=== PATIENT | male | born 1960 | race African-American/Black ===

== ENCOUNTER 2024-10-17 11:55 | Outpatient (AMB) | payer OTHER, SELFPAY ==
--- NOTE | 2024-10-17 12:09 | HO.NEPHOV_ITS ---
Vital Signs 10/17/24 12:12 Height 5 ft 11 in Weight 209 lb 2 oz BMI 29.2 BP 100/70 Blood Pressure Location Lt brachial Position Sitting Pulse 90 Pulse Source Pulse Oximeter Pulse Oximetry (%) 98 Oxygen Delivery Method Room Air Intake Visit Reasons: DISH MACHINE OPERATOR: Bilateral renal cysts-Conf Trestle Mainternance Laborer Required: No Accompanied by: Self / Same As Patient Allergies No Known Allergies Allergy (Verified 10/17/24 12:11) HPI Comments Details: I had the pleasure of seeing Tevin in consultation for CKD and renal cysts. He has been a diabetic for a long time and is currently on Trulicity and glimiperide. He feels his DM is under better control. He has H/O lymphoma in the past. He has been aware of his CKD for sometime but has not seen a renal physician in the past. He is unsure whether he has proteinuria but denies retinopathy or neuropathy. He denies CAD, carotid stenosis, CVA, CHF or PAD. He has no deafness, hematuria, sinusitis, epistaxis, new skin rashes, edema , nausa, vomiting, diarrhea, IBD or urinary symptoms. He is known to have renal cysts but has no flank pain or renal stones. His mom was on dialysis and is unsure what led to her renal issues. He never had a genetic testing for PKD. [facility] Medical History (Updated 10/17/24 @ 12:27 by Stuart Allen MD) Diabetes mellitus type 2 in nonobese Congenital bilateral renal cysts Mixed hyperlipidemia Fatty liver Lymphoma of lymph nodes of neck Family History (Updated 10/17/24 @ 12:11 by Baylee Rust MA) Mother Diabetes Father Cancer Social History (Updated 10/17/24 @ 12:10 by Baylee Rust MA) Alcohol intake: never Patient Tobacco Use Status: Never used Tobacco Review of Systems Const All systems reviewed & are unremarkable except as noted in HPI and below Physical Exam Vital Signs: Last Vital Signs Pulse 90 10/17/24 12:12 BP 100/70 10/17/24 12:12 Pulse Ox 98 10/17/24 12:12 Oxygen Delivery Method Room Air 10/17/24 12:12 BMI result Body Mass Index 29.2 Const General: comfortable and no acute distress Orientation/consciousness: patient oriented x3 HEENT Head: Yes normocephalic Mouth: Normal oral and palatal mucosa present Eyes EOM: EOMs intact bilaterally Neck Neck: Yes supple Resp Auscultation: clear to auscultation bilaterally Cardio Jugular venous distension: no JVD Rate: regular rate GI Palpation (GI): Soft to palpation Auscultation: normal bowel sounds General: Yes no CVA tenderness Back/Spine/Pelvis Back: no CVA tenderness Skin General skin exam: no rashes or lesions noted Neuro General: patient oriented x3 and moves all extremities Extrem General: Yes no pedal edema Assessment & Plan Assessment & Plan (1) CKD stage 3a, GFR 45-59 ml/min: Code(s): N18.31 - Chronic kidney disease, stage 3a Category: Medical Plan Tevin has CKD which likely is multifactorial. He has long standing DM but denies proteinuria, hematuria, edema or hypertension. He had lymphoma in the past. He is known to have renal cysts. His mom was on dialysis and is unsure what led to her renal issues. He never had a genetic testing for PKD. I have ordered further work up including 24 hour urine for creatinine clearance. He will be a candidate for SGLT2 i after D/Cing glimeperide at next visit based on evolving data. I also plan to arrange imaging of kidneys in 6 M for F/U renal cysts. He should preferably avoid NSAID's and maintain good hydration. Answered all questions and follow up was given Orders: Orders Creatinine Clearance Urine 24U 6 Months N18.31 - Chronic kidney disease, stage 3a Parathyroid Hormone Intact 6 Months N18.31 - Chronic kidney disease, stage 3a Vitamin D 25-OH Total 6 Months N18.31 - Chronic kidney disease, stage 3a Creatinine 6 Months N18.31 - Chronic kidney disease, stage 3a Immunofixation Pnl, Serum 6 Months N18.31 - Chronic kidney disease, stage 3a Electrolytes 6 Months N18.31 - Chronic kidney disease, stage 3a Calcium 6 Months N18.31 - Chronic kidney disease, stage 3a Blood Urea Nitrogen 6 Months N18.31 - Chronic kidney disease, stage 3a Protein Creatinine Ratio, Ur 6 Months N18.31 - Chronic kidney disease, stage 3a Coding Level of Care Code New Pt Level 4 (31651) Diagnoses CKD stage 3a, GFR 45-59 ml/min N18.31
[2024-10-17 12:12] VITALS: BP 100/70; PULSE 90; O2SAT 98; BMI 29.2
--- OUTSIDE RECORDS SUMMARY | 2024-10-17 13:24 | XMS_ITS | Encounter Summary ---
Author Organization [place] [address] Care Team Providers Care Utility Worker Roller Shop Name Role Phone Maury Castaneda MD Primary Care Provider [phone] Reason for Visit * Reason Onset Date Comments Leonel - Records request 10/03/2024 Encounter Details Date Type Department Care Team ([facility] st Contact Info) Description 10/03/2024 Telephone Internal Medicine - [place] 175 [facility] [address] [place] [phone] Maury Castaneda MD 175 [facility] [address] [place] [address] Leonel - Records request Social History Tobacco Use Types Packs/Day Years Used Date Smoking Tobacco: Never Smokeless Tobacco: Never Alcohol Use Standard Drinks/Week Comments No 0 (1 standard drink = 0.6 oz pur e alcohol) Sex and Gender Information Value Date Recorded Sex Assigned at Male 06/19/2024 5:09 PM EST Legal Sex Male 8:40 AM EST Gender Identity Male 06/19/2024 5:09 PM EST Sexual Orientation Straight 06/19/2024 5: 09 PM EST documented as of this encounter Progress Notes * Yancy Low MA - 10/04/2024 10:52 AM EDT Notes and labs fax to [phone] * Eloina Vicente - 10/03/2024 3:32 PM EDT Renny from [facility] called and stated they received referral for this patient. But he requested pt's most recent office clinical notes and lab results because they did not receive those with referral. He also stated if pt has any other diagnosis' to send a list. Please advise. Please fax to [phone]. documented in this encounter Plan of Treatment Upcoming Encounters Date Type Department Care Team (Late st Contact Info) Description 01/23/2025 10:00 AM EDT Office Visit [facility] Hematology Oncology [address] [place] [address] Lesley Ferreira MD [address] [place] [address] 02/14/2025 9:45 AM EDT Office Visit Internal Medicine - [place] [address] [address] Maury Castaneda MD [address] [address] documented as of this encounter Visit Diagnoses Not on filedocumented in this encounter Additional Health Concerns Infection Onset Date Last Indicated Resolved Time Salmonella 06/21/2024 06/21/2024 documented as of this encounter Care Teams Utility Worker Roller Shop Relationship Specialty Start Date End Date Maury Castaneda MD [address] [address] PCP - General Internal Medicine 02/08/20 documented as of this encounter
== END 2024-10-17 12:37 | disposition home or self-care (01) ==
PROVIDERS: PCP Internal Medicine; Visit Provider Internal Medicine Nephrology
DX: N18.31 Chronic kidney disease, stage 3a (principal)
CPT/HCPCS: 99204

== ENCOUNTER → 2024-10-17 11:55 | Outpatient (BNVA) | payer OTHER, SELFPAY | PROVIDERS: PCP Internal Medicine; Visit Provider Internal Medicine Nephrology | DX: E11.22 Type 2 diabetes mellitus with diabetic chronic kidney disease (principal); N18.31 Chronic kidney disease, stage 3a; N28.1 Cyst of kidney, acquired | CPT/HCPCS: 99202 ==

== ENCOUNTER 2025-04-10 15:01 | Outpatient (AMB) | payer OTHER, SELFPAY ==
--- NOTE | 2025-04-10 15:19 | HO.NEPHOV ---
Vital Signs 04/10/25 15:20 Height 5 ft 11 in Weight 206 lb 2 oz BMI 28.7 BP 116/80 Blood Pressure Location Lt brachial Position Sitting Pulse 60 Pulse Source Pulse Oximeter Pulse Oximetry (%) 98 Oxygen Delivery Method Room Air Intake Visit Reasons: 6 mo follow up-[facility] Block And Case Maker Required: No Accompanied by: Self / Same As Patient Allergies No Known Allergies Allergy (Verified 04/10/25 15:20) HPI Comments Details: I had the pleasure of seeing Tevin in follow up for CKD and renal cysts. He has been a diabetic for a long time and is currently on Trulicity and glimiperide. He feels his DM is under better control. He has H/O lymphoma in the past. He has been aware of his CKD for sometime but has not seen a renal physician in the past. He is unsure whether he has proteinuria but denies retinopathy or neuropathy. He denies CAD, carotid stenosis, CVA, CHF or PAD. He has no deafness, hematuria, sinusitis, epistaxis, new skin rashes, edema , nausa, vomiting, diarrhea, IBD or urinary symptoms. He is known to have renal cysts but has no flank pain or renal stones. His mom was on dialysis and is unsure what led to her renal issues. He never had a genetic testing for PKD [facility] Medical History (Updated 04/10/25 @ 15:33 by Stuart Allen MD) Diabetes mellitus type 2 in nonobese Congenital bilateral renal cysts Mixed hyperlipidemia Fatty liver Lymphoma of lymph nodes of neck Family History Mother Diabetes Father Cancer Social History Alcohol intake: never Patient Tobacco Use Status: Never used Tobacco Review of Systems Const All systems reviewed & are unremarkable except as noted in HPI and below Physical Exam Vital Signs: Last Vital Signs Pulse 60 04/10/25 15:20 BP 116/80 04/10/25 15:20 Pulse Ox 98 04/10/25 15:20 Oxygen Delivery Method Room Air 04/10/25 15:20 BMI result Body Mass Index 28.7 Const General: comfortable and no acute distress Orientation/consciousness: patient oriented x3 HEENT Head: Yes normocephalic Mouth: Normal oral and palatal mucosa present Eyes EOM: EOMs intact bilaterally Neck Neck: Yes supple Resp Auscultation: clear to auscultation bilaterally Cardio Jugular venous distension: no JVD Rate: regular rate GI Palpation (GI): Soft to palpation Auscultation: normal bowel sounds General: Yes no CVA tenderness Back/Spine/Pelvis Back: no CVA tenderness Skin General skin exam: no rashes or lesions noted Neuro General: patient oriented x3 and moves all extremities Extrem General: Yes no pedal edema Assessment & Plan Assessment & Plan (1) CKD stage 3a, GFR 45-59 ml/min: Code(s): N18.31 - Chronic kidney disease, stage 3a Category: Medical (2) Renal cyst: Code(s): N28.1 - Cyst of kidney, acquired Category: Medical Plan Tevin has CKD which likely is multifactorial. He has long standing DM but denies proteinuria, hematuria, edema or hypertension. He had lymphoma in the past. He is known to have renal cysts. His mom was on dialysis and is unsure what led to her renal issues. He never had a genetic testing for PKD. I started him on Jardiance 10 mg today which I plan to increase to 25 mg at next visit. I also plan to arrange imaging of kidneys in 6 M for F/U renal cysts. He should preferably avoid NSAID's and maintain good hydration. Answered all questions and follow up was given Orders: Orders Hemoglobin A1c 3 Months N18.31 - Chronic kidney disease, stage 3a, N28.1 - Cyst of kidney, acquired [employer] Mon[employer] Crohn's 3 Months N18.31 - Chronic kidney disease, stage 3a, N28.1 - Cyst of kidney, acquired Blood Urea Nitrogen 3 Months N18.31 - Chronic kidney disease, stage 3a, N28.1 - Cyst of kidney, acquired Creatinine 3 Months N18.31 - Chronic kidney disease, stage 3a, N28.1 - Cyst of kidney, acquired Electrolytes 3 Months N18.31 - Chronic kidney disease, stage 3a, N28.1 - Cyst of kidney, acquired Medications: New empagliflozin (Jardiance) 10 mg PO DAILY 30 tabs 6RF Coding Level of Care Code Est Pt Level 4 (94092) Diagnoses CKD stage 3a, GFR 45-59 ml/min N18.31 Renal cyst N28.1
[2025-04-10 15:20] VITALS: BP 116/80; PULSE 60; O2SAT 98; BMI 28.7
--- OUTSIDE RECORDS SUMMARY | 2025-04-10 18:44 | XMS_ITS | Encounter Summary ---
Author Organization [employer] Address [address] [place] [address] Care Team Providers Care Acrobatic Rigger Name Role Phone Maury Castaneda MD Primary Care Provider [phone] Encounter Details Date Type Department Care Team (Late st Contact Info) Description 02/15/2025 Results Follow-Up Internal Medicine - [place] [address] [phone] Maury Castaneda MD [address] [address] Social History Tobacco Use Types Packs/Day Years [...] PM EST documented as of this encounter Plan of Treatment Upcoming Encounters Date Type Department Care Team (Late st Contact Info) Description 04/18/2025 10:00 AM EST Office Visit Endocrinology - [address] [address] Michael Mcfadden MD [address] [place], [place] 01/23/2026 10:15 AM EDT Office Visit [facility] Hematology Oncology [address] [place] [phone] Lesley Ferreira MD [address] [place] [address] documented as of this encounter Visit Diagnoses Not on filedocumented in this encounter Additional Health Concerns Infection Onset Date Last Indicated Resolved Time Salmonella 06/21/2024 06/21/2024 documented as of this encounter Care Teams Acrobatic Rigger Relationship Specialty Start Date End Date Maury Castaneda MD [address] [address] PCP - General Internal Medicine 02/08/20 documented as of this encounter
--- OUTSIDE RECORDS SUMMARY | 2025-04-10 18:44 | XMS_ITS | Encounter Summary ---
Author Organization [facility] Address [facility] [employer] [facility] [address] [place] [address] Phone Care Team Providers Care Beet Flumer Name Role Phone Maury Castaneda MD Primary Care Provider [phone] Lesley Ferreira MD Unavailable [phone] Roxi Roper Unavailable [phone] Encounter Details Date Type Department Care Team (Late st Contact Info) Description 09/04/2020 Procedure Pass [facility] L2 PRU [address] [place] [address] Social History Tobacco Use Types Packs/Day Years Used Date Smoking Tobacco: Never Smokeless Tobacco: Never Sex and Gender Information Value Date Recorded Sex Assigned at Male 10/14/2020 4:54 PM EDT Legal Sex Male 10:07 AM EST Gender Identity Male 10/14/2020 4:54 PM EDT Sexual Orientation Straight 10/14/2020 4: 54 PM EDT documented as of this encounter Plan of Treatment Not on file documented as of this encounter Visit Diagnoses Not on filedocumented in this encounter Care Teams Beet Flumer Relationship Specialty Start Date End Date Maury Castaneda MD [address] [address] PCP - General Internal Medicine 05/23/20 Lesley Ferreira MD [address] [address] [email or web address] Referring Physician Internal Medicine 05/23/20 Roxi Roper, [address] [address] [email or web address] Executive Director Of Nursing Oncology 08/06/20 documented as of this encounter Additional Source Comments The information contained in this document represents components of the legal health record. It is not the complete legal health record.[facility]
--- OUTSIDE RECORDS SUMMARY | 2025-04-10 18:44 | XMS_ITS | Encounter Summary ---
Author Organization [facility] Address [facility] [employer] [facility] [address] [place] [address] Phone Care Team Providers Care Network Operations Center Engineer Name Role Phone Maury Castaneda MD Primary Care Provider [phone] Lesley Ferreira MD Unavailable [phone] Roxi Roper Unavailable [phone] Encounter Details Date Type Department Care Team (Late st Contact Info) Description 09/04/2020 Procedure Pass [facility] Angio Interventional Radiology [address] [place] [address] Social History Tobacco Use Types Packs/Day Years [...] on filedocumented in this encounter Care Teams Network Operations Center Engineer Relationship Specialty Start Date End Date Maury Castaneda MD [address] [address] PCP - General Internal Medicine 05/23/20 Lesley Ferreira MD [address] [address] [email or web address] Referring Physician Internal Medicine 05/23/20 Roxi Roper, [address] [address] [email or web address] Boring Machine Operator Oncology 08/06/20 documented as of this encounter Additional Source Comments The information contained in this document represents components of the legal health record. It is not the complete legal health record.[facility]
--- OUTSIDE RECORDS SUMMARY | 2025-04-10 18:44 | XMS_ITS | Encounter Summary ---
Author Organization [facility] Address [facility] [employer] [facility] [address] [place] [address] Phone Care Team Providers Care Mash Filter Operator Name Role Phone Maury Castaneda MD Primary Care Provider [phone] Lesley Ferreira MD Unavailable [phone] Roxi Roper Unavailable [phone] Encounter Details Date Type Department Care Team (Late st Contact Info) Description 08/05/2020 [facility], Division of Hematologic Oncology, [facility] [place] [address] [place] [address], [address] [place] [address] Tanisha Whitlock, RN [address] [place] [phone] [email or web address] Social History Tobacco Use Types Packs/Day Years Used Date Smoking Tobacco: Never Assessed Sex and Gender Information Value Date Recorded Sex Assigned at Male 10/14/2020 4:54 PM EDT Legal Sex Male 10:07 AM EST Gender Identity Male 10/14/2020 4:54 PM EDT Sexual Orientation Straight 10/14/2020 4: 54 PM EDT documented as of this encounter Plan of Treatment Not on file documented as of this encounter Visit Diagnoses Not on filedocumented in this encounter Care Teams Mash Filter Operator Relationship Specialty Start Date End Date Maury Castaneda MD [address] [address] PCP - General Internal Medicine 05/23/20 Lesley Ferreira MD [address] [place] [id number] [email or web address] Referring Physician Internal Medicine 05/23/20 Roxi Roper, [address] [address] [email or web address] Silk Screen Etcher Oncology 08/06/20 documented as of this encounter Additional Source Comments The information contained in this document represents components of the legal health record. It is not the complete legal health record.[facility]
--- OUTSIDE RECORDS SUMMARY | 2025-04-10 18:44 | XMS_ITS | Encounter Summary ---
Author Organization [facility] Address [facility] [employer] [facility] [address] [place] [address] Phone Care Team Providers Care Design Technology Teacher Name Role Phone Maury Castaneda MD Primary Care Provider [phone] Lesley Ferreira MD Unavailable [phone] Roxi Roper Unavailable [phone] Encounter Details Date Type Department Care Team (Late st Contact Info) Description 10/23/2020 Procedure Pass [facility] Angio Interventional Radiology [address] [place] [address] Social History Tobacco Use Types Packs/Day Years Used Date Smoking Tobacco: Never Smokeless Tobacco: Never Alcohol Use Standard Drinks/Week Comments Not Currently 0 (1 standard drink = 0.6 oz [...] on filedocumented in this encounter Care Teams Design Technology Teacher Relationship Specialty Start Date End Date Maury Castaneda MD 175 [facility] [address] [place] [address] PCP - General Internal Medicine 05/23/20 Lesley Ferreira MD [address] [place] [phone] [email or web address] Referring Physician Internal Medicine 05/23/20 Roxi Roper, [address] [address] [email or web address] Exhibitor Sales Oncology 08/06/20 documented as of this encounter Additional Source Comments The information contained in this document represents components of the legal health record. It is not the complete legal health record.[facility]
--- OUTSIDE RECORDS SUMMARY | 2025-04-10 18:44 | XMS_ITS | Clinical Summary ---
Author Organization [facility] Address [address] [place] [address] Phone Care Team Providers Care Linux Developer Name Role Phone Maury Castaneda MD Primary Care Provider [phone] Allergies No known active allergies Medications dulaglutide (Trulicity) 3 mg/0.5 mL pen injector injection Inject 0.5 mL (3 mg total) under the skin every 7 (seven) days. Active glimepiride (AMARYL) 2 mg tablet Take 1 tablet (2 mg total) by mouth 1 (one) time each day before breakfast. each 5 026 Active blood-glucose meter (OneTouch Ultra2 Meter) misc Use to monitor blood sugars up to 4 times daily for type 2 diabetes mellitus E11.9 1 each 5 Active OneTouch Ultra Test test strip Use to monitor blood sugars up to 4 times daily for type 2 diabetes mellitus E11.9 100 each 2 5 Active lancets (OneTouch UltraSoft 2 Lancet) 30 gauge misc Monitor blood sugars up to 4X daily for type 2 diabetes mellitus E11.9 100 each 3 5 Active glimepiride (AMARYL) 2 mg tablet Take 2 tablets (4 mg total) by mouth 2 (two) times a day. 4 025 Discontinued dulaglutide (Trulicity) 1.5 mg/0.5 mL pen injector injectionIndic ations:Diabete s mellitus type 2 in nonobese ([facility] V24, CMS/HCC V28) Inject 0.5 mL (1.5 mg total) under the skin 1 (one) time per week. 2 mL 3 5 025 Discontinued Active Problems Problem Noted Date Diagnosed Date Type 2 diabetes mellitus wit h hyperglycemia, without long-term current use of insulin (CMS/[facility] V24, CMS/HCC V28) 03/14/2025 Lymphoma of lymph nodes of neck (CMS/[facility] V24, CM S/[facility] V28) 09/09/2018 Fatty liver 06/20/2010 Mixed hyperlipidemia 06/20/2010 Known medical problems 06/20/2010 Overview (04/26/2024): Type II or unspecified type diabetes mellitus without mention of complication, uncontrolled Encounters Date Type Department Care Team Description 03/14/2025 11:30 AM EDT Consult Endocrinology [address] [phone] Michael Mcfadden MD Type 2 diabetes mellitus with hyperglycemia, without long-term current use of insulin ([facility] V24, [facility] V28) (Primary Dx); Diabetes mellitus type 1.5, managed as type 2 ([facility] V24, [facility]/HCC V28) 02/15/2025 Results Follow-Up Internal Medicine [address] [phone] Maury Castaneda MD 02/14/2025 9:45 AM EDT Office Visit Internal Medicine [address] [phone] Maury Castaneda MD Diabetes mellitus type 1.5, managed as type 2 ([facility] V24, CMS/HCC V28) (Primary Dx); Mixed hyperlipidemia; Lymphoma of lymph nodes of neck, unspecified lymphoma type (CMS/[facility] V24, CMS/HCC V28); Screening for prostate cancer 01/23/2025 10:00 AM EDT Office Visit [facility] Hematology Oncology [address] [place] [phone] Lesley Ferreira MD History of B-cell lymphoma (Primary Dx) from Last 3 Months Immunizations Immunization Administration Dates Next Due Influenza Quadravalent, MDCK , 0.5ml, preservative free (Flucelvax) 6mo and older 02/08/2020 Influenza trivalent, 0.5mL, preservative free (Fluarix; FluLaval; Fluzone) ages 6mo and older (Afluria) 3 years and older 06/19/2010,03/06/2008 Pfizer SARS-CoV-2 COVID-19, mRNA, LNP-S, preservative free 07/09/2020 Pneumococcal polysaccharide 23 valent (Pneumovax 23) 2yo and older 06/19/2010 Td Tetanus diptheria (Tdvax) 7yo and older 03/30,05/17/1992 Tdap Tetanus diptheria acell ular pertussis (Boostrix; Adacel) 7yo and older 08/15/2010 Medical History Medical History Date Comments Diabetes mellitus ([facility] V24, [facility] V28) Social History Tobacco Use Types Packs/Day Years Used Date Smoking Tobacco: Never Smokeless Tobacco: Never Tobacco Cessation:Counseling Given: Not Answered Alcohol Use Standard Drinks/Week Comments No 0 (1 standard drink = 0.6 oz pur e alcohol) Sex and Gender Information Value Date Recorded Sex Assigned at Male 06/19/2024 5:09 PM EST Legal Sex Male 8:40 AM EST Gender Identity Male 06/19/2024 5:09 PM EST Sexual Orientation Straight 06/19/2024 5: 09 PM EST Obstetrics History Last Filed Vital Signs Vital Sign Reading Time Taken Comments Blood Pressure 130/81 03/14/2025 11:31 AM EDT Pulse 61 03/14/2025 11:31 AM EDT Temperature 36.4 C (97.5 F) 02/14/2025 9:44 AM EDT Respiratory Rate 13 03/14/2025 11:31 AM EDT Oxygen Saturation 98% 02/14/2025 9:44 AM EDT Inhaled Oxygen Concentration - - Weight 95.7 kg (211 lb) 03/14/2025 11:31 AM EDT Height 180.3 cm (5' 11 ) 03/14/2025 11:31 AM EDT Body Mass Index 29.43 03/14/2025 11:31 AM EDT Plan of Treatment Upcoming Encounters Date Type Department Care Team (Late st Contact Info) Description 04/18/2025 10:00 AM EST Office Visit Endocrinology - [place] [address] [place] [phone] Michael Mcfadden MD [address] [place] [address] 01/23/2026 10:15 AM EDT Office Visit [facility] Hematology Oncology [address] [place] [phone] Lesley Ferreira MD [address] [place] [address] Health Maintenance Due Date Last Done Comments Diabetes: Annual Foot Exam 1972 Diabetes: Annual Retina Eye Exam 1972 Zoster Vaccines (1 of 2) 1981 Pneumococcal Vaccine: 50+ Years (2 of 2 - PCV) 06/19/2011 06/19/2010 DTaP,Tdap,and Td Vaccines (4 - Td or Tdap) 08/15/2020 08/15/2010, 03/30/2005, 05/17/1992 HIV Screening 04/24/2022 Hepatitis C Screening 04/24/2022 Medicare Annual Wellness Visit 04/24/2022 Social Influencers of Health Screening 04/24/2022 Depression Screening 05/17/2024 COVID-19 Vaccine ( season) 2025 03/27/2022, 04/09/2021, 08/08/2020, Additional history exists Influenza Vaccine (#1) 2025 , 06/19/2010, 03/06/2008 Diabetes: Blood Sugar Control Test (HGBA1C) 08/16/2025 02/15/2025, 06/27/2021, 02/12/2020 Diabetes: Annual Urine Albumin-Creatinine Ratio (uACR) 11/28/2025 11/28/2024, 11/28/2024, 02/12/2020 Diabetes: Annual GFR (Glomerular Filtration Rate) 02/15/2026 02/15/2025, 12/08/2024, 11/28/2024, Additional history exists Cholesterol Screening (Lipid Panel) 02/15/2030 02/15/2025, 06/27/2021, 02/12/2020 Colorectal Cancer Screening: Colonoscopy 09/23/2033 09/24/2023 RSV Immunization Adult Patients (1 - 1-dose 75+ series) 2037 HIB Vaccines Aged Out No longer eligi ble based on patient's age to complete this topic HPV Vaccines Aged Out No longer eligi ble based on patient's age to complete this topic Hepatitis A Vaccines Aged Out No long er eligible based on patient's age to complete this topic Hepatitis B Vaccines Aged Out No long er eligible based on patient's age to complete this topic IPV Vaccines Aged Out No longer eligi ble based on patient's age to complete this topic MMR Vaccines Aged Out No longer eligi ble based on patient's age to complete this topic Meningococcal ACWY Vaccine Aged Out N o longer eligible based on patient's age to complete this topic Meningococcal B Vaccine Aged Out No l onger eligible based on patient's age to complete this topic RSV Immunization Patients Under 20 months Aged Out No longer eligible based on patient's age to complete this topic Varicella Vaccines Aged Out No longer eligible based on patient's age to complete this topic Procedures Procedure Name Priority Date/Time Associated Diagnosis Comments CBC WITH AUTO DIFFERENTIAL Routine 02/15/2025 8:56 AM EDT Mixed hyperlipidemia Diabetes mellitus type 1.5, managed as type 2 (CMS/HCC V24, CMS/HCC V28) Lymphoma of lymph nodes of neck, unspecified lymphoma type (CMS/HCC V24, CMS/HCC V28) LIPID PANEL WITH REFLEX TO DIRECT LDL Routine 02/15/2025 8:56 AM EDT Mixed hyperlipidemia Diabetes mellitus type 1.5, managed as type 2 (CMS/HCC V24, CMS/HCC V28) Lymphoma of lymph nodes of neck, unspecified lymphoma type (CMS/HCC V24, CMS/HCC V28) CBC AND DIFFERENTIAL Routine 02/15/2025 8:56 AM EDT Mixed hyperlipidemia Diabetes mellitus type 1.5, managed as type 2 (CMS/HCC V24, CMS/HCC V28) Lymphoma of lymph nodes of neck, unspecified lymphoma type (CMS/HCC V24, CMS/HCC V28) COMPREHENSIVE METABOLIC PANEL Routine 02/15/2025 8:56 AM EDT Mixed hyperlipidemia Diabetes mellitus type 1.5, managed as type 2 (CMS/HCC V24, CMS/HCC V28) Lymphoma of lymph nodes of neck, unspecified lymphoma type (CMS/HCC V24, CMS/HCC V28) THYROID STIMULATING HORMONE Routine 02/15/2025 8:56 AM EDT Mixed hyperlipidemia Diabetes mellitus type 1.5, managed as type 2 (CMS/HCC V24, CMS/HCC V28) Lymphoma of lymph nodes of neck, unspecified lymphoma type (CMS/HCC V24, CMS/HCC V28) HEMOGLOBIN A1C Routine 02/15/2025 8:56 AM EDT Mixed hyperlipidemia Diabetes mellitus type 1.5, managed as type 2 (CMS/HCC V24, CMS/HCC V28) Lymphoma of lymph nodes of neck, unspecified lymphoma type (CMS/HCC V24, CMS/HCC V28) PROSTATE SPECIFIC ANTIGEN SCREEN Routine 02/15/2025 8:56 AM EDT Screening for prostate cancer MICROALBUMIN CREATININE URINE RATIO Routine 11/28/2024 9:35 AM EDT Diabetes mellitus (CMS/HCC V24, CMS/HCC V28) Chronic kidney disease, stage II (mild) HM COLONOSCOPY Routine 09/24/2023 from Last 3 Months or Most Recently Relevant to Health Maintenance Results * Prostate specific antigen screen (02/15/2025 8:56 AM EDT) PSA 0.78 0.00 - 4.00 ng/mL LAB CHEMISTRY METHOD 02/15/2025 11:48 AM EDT [facility] Blood Venous blood specimen / Unknown Venipuncture / Unknown 02/15/2025 8:56 AM EDT 02/15/2025 8:56 AM EDT Narrative [facility] - 02/15/2025 11:48 AM EDT The Siemens Advia Centaur Chemiluminescent Immunoassay is used. Results obtained with different assay methods or kits cannot be used interchangeably. Results cannot be interpreted as absolute evidence of the presence or absence of malignant disease. us Maury Castaneda MD LAB BLOOD ORDERABLES Final Resul t [facility] [address] [place] [address], [place] [phone] * (ABNORMAL) Lipid panel with reflex to direct LDL (02/15/2025 8:56 AM EDT) Cholesterol 202(H) 0 - 200 mg/dL LAB CHEMISTRY METHOD 02/15/2025 10:24 AM T [facility] Triglycerides 141 0 - 150 mg/dL LAB CHEMISTRY METHOD 02/15/2025 10:24 AM EDT [facility] HDL 69 >=40 mg/dL LAB CHEMISTRY METHOD 02/15/2025 10:24 AM EDT [facility] LDL Calculated 105(H) 0 - 100 mg/dL LAB CHEMISTRY METHOD 02/15/2025 10:24 AM T [facility] Comment:Estimated LDL Calcul ated using equation: Total cholesterol - HDL cholesterol - (Triglycerides/5) VLDL Cholesterol Braulio 28.2 mg/dL LAB CHEMISTRY METHOD 02/15/2025 10:24 AM EDT [facility] Non HDL Chol. (LDL+VLDL) 133 <145 mg/dL LAB CHEMISTRY METHOD 02/15/2025 10:24 AM EDT [facility] Chol/HDL Ratio 2.9 0.0 - 4.4 LAB CHEMISTRY METHOD 02/15/2025 10:24 AM [facility] Blood Venous blood specimen / Unknown Venipuncture / Unknown 02/15/2025 8:56 AM EDT 02/15/2025 8:56 AM EDT us Maury Castaneda MD LAB BLOOD ORDERABLES Final Resul t [facility] [address] [place] [address], * (ABNORMAL) CBC auto differential (02/15/2025 8:56 AM EDT) WBC 4.3(L) 4.8 - 10.8 K/mcL LAB HEMETOLOGY METHOD 02/15/2025 10:00 AM [facility] RBC 5.30 4.50 - 5.50 M/mcL LAB HEMETOLOGY METHOD 02/15/2025 10:00 AM [facility] Hemoglobin 15.5 13.5 - 17.5 g/dL LAB HEMETOLOGY METHOD 02/15/2025 10:00 AM [facility] Hematocrit 48.0 42.0 - 54.0 % LAB HEMETOLOGY METHOD 02/15/2025 10:00 AM [facility] MCV 90.6 79.0 - 98.0 FL LAB HEMETOLOGY METHOD 02/15/2025 10:00 AM [facility] MCH 29.2 27.0 - 32.0 pcg LAB HEMETOLOGY METHOD 02/15/2025 10:00 AM [facility] MCHC 32.3 32.0 - 37.0 g/dL LAB HEMETOLOGY METHOD 02/15/2025 10:00 AM [facility] RDW 13.1 11.0 - 15.0 % LAB HEMETOLOGY METHOD 02/15/2025 10:00 AM [facility] Platelets 188 130 - 400 K/mcL LAB HEMETOLOGY METHOD 02/15/2025 10:00 AM [facility] MPV 11.7(H) 7.0 - 11.0 FL LAB HEMETOLOGY METHOD 02/15/2025 10:00 AM [facility] NRBC 0.0 <1.0 % LAB HEMETOLOGY METHOD 02/15/2025 10:00 AM [facility] NRBC Absolute 0.00 <0.10 K/mcL LAB HEMETOLOGY METHOD 02/15/2025 10:00 AM [facility] Neutrophils Relative 34.8 % LAB HEMETOLOGY METHOD 02/15/2025 10:00 AM [facility] Lymphocytes Relative 52.5 % LAB HEMETOLOGY METHOD 02/15/2025 10:00 AM [facility] Monocytes Relative 7.4 % LAB HEMETOLOGY METHOD 02/15/2025 10:00 AM [facility] Eosinophils Relative 3.9 % LAB HEMETOLOGY METHOD 02/15/2025 10:00 AM [facility] Basophils Relative 1.2 % LAB HEMETOLOGY METHOD 02/15/2025 10:00 AM [facility] Immature Granulocytes Relative 0.2 % LAB HEMETOLOGY METHOD 02/15/2025 10:00 AM [facility] Neutrophils Absolute 1.51 1.50 - 7.00 K/mcL LAB HEMETOLOGY METHOD 02/15/2025 10:00 AM [facility] Lymphocytes Absolute 2.28 1.00 - 5.00 K/mcL LAB HEMETOLOGY METHOD 02/15/2025 10:00 AM [facility] Monocytes Absolute 0.32 0.20 - 1.00 K/mcL LAB HEMETOLOGY METHOD 02/15/2025 10:00 AM [facility] Eosinophils Absolute 0.17 0.00 - 0.50 K/mcL LAB HEMETOLOGY METHOD 02/15/2025 10:00 AM [facility] Basophils Absolute 0.05 0.00 - 0.20 K/[facility] LAB HEMETOLOGY METHOD 02/15/2025 10:00 AM EDT [facility] Immature Granulocytes Absolute 0.01 0.00 - 0.03 K/[facility] LAB HEMETOLOGY METHOD 02/15/2025 10:00 AM EDT [facility] Blood Venous blood specimen / Unknown Venipuncture / Unknown 02/15/2025 8:56 AM EDT 02/15/2025 8:56 AM EDT us Maury Castaneda MD LAB BLOOD ORDERABLES Final Resul t Performing Organization Address City/[facility]/ZIP Co de Phone Number [facility] [address] [place] [address], [place] [phone] * Thyroid stimulating hormone (02/15/2025 8:56 AM EDT) TSH 2.05 0.40 - 4.00 mcIU/mL LAB CHEMISTRY METHOD 02/15/2025 11:24 AM EDT [facility] Blood Venous blood specimen / Unknown Venipuncture / Unknown 02/15/2025 8:56 AM EDT 02/15/2025 8:56 AM EDT us Maury Castaneda MD LAB BLOOD ORDERABLES Final Resul t [facility] [address] [place] [address], [place] [phone] * (ABNORMAL) Hemoglobin A1c (02/15/2025 8:56 AM EDT) Hemoglobin A1C 12.5(H) <6.5 % LAB CHEMISTRY METHOD 02/15/2025 12:36 PM EDT [facility] Mean Bld Glu Estim. 312 mg/dL LAB CHEMISTRY METHOD 02/15/2025 12:36 PM EDT [facility] Blood Venous blood specimen / Unknown Venipuncture / Unknown 02/15/2025 8:56 AM EDT 02/15/2025 8:56 AM EDT us Maury Castaneda MD LAB BLOOD ORDERABLES Final Resul t [facility] [address] [place] [address], * (ABNORMAL) Comprehensive metabolic panel (02/15/2025 8:56 AM EDT) Sodium 136 133 - 145 mmol/L LAB CHEMISTRY METHOD 02/15/2025 10:24 AM [facility] Potassium 4.2 3.5 - 5.5 mmol/L LAB CHEMISTRY METHOD 02/15/2025 10:24 AM [facility] Chloride 102 96 - 110 mmol/L LAB CHEMISTRY METHOD 02/15/2025 10:24 AM [facility] CO2 30 21 - 32 mmol/L LAB CHEMISTRY METHOD 02/15/2025 10:24 AM [facility] Anion Gap 4 3 - 11 LAB CHEMISTRY METHOD 02/15/2025 10:24 AM [facility] Glucose 254(H) 70 - 100 mg/dL LAB CHEMISTRY METHOD 02/15/2025 10:24 AM [facility] BUN 15 5 - 25 mg/dL LAB CHEMISTRY METHOD 02/15/2025 10:24 AM [facility] Creatinine 1.03 0.70 - 1.30 mg/dL LAB CHEMISTRY METHOD 02/15/2025 10:24 AM [facility] eGFR 82 >=60 mL/min/1. 73m2 LAB CHEMISTRY METHOD 02/15/2025 10:24 AM [facility] Comment:Calculation based on the Chronic Kidney Disease Epidemiology Collaboration (CKD-EPI) equation refit without adjustment for race. BUN/Creatinine Ratio 14.6 LAB CHEMISTRY METHOD 02/15/2025 10:24 AM [facility] Calcium 9.5 8.5 - 10.5 mg/dL LAB CHEMISTRY METHOD 02/15/2025 10:24 AM [facility] AST (SGOT) 16 10 - 42 unit/L LAB CHEMISTRY METHOD 02/15/2025 10:24 AM [facility] ALT (SGPT) 26 10 - 60 unit/L LAB CHEMISTRY METHOD 02/15/2025 10:24 AM [facility] Alkaline Phosphatase 105 42 - 121 unit/L LAB CHEMISTRY METHOD 02/15/2025 10:24 AM [facility] Total Protein 6.7 6.0 - 8.0 g/dL LAB CHEMISTRY METHOD 02/15/2025 10:24 AM [facility] Albumin 3.9 3.2 - 5.0 g/dL LAB CHEMISTRY METHOD 02/15/2025 10:24 AM [facility] Total Bilirubin 0.8 0.0 - 1.4 mg/dL LAB CHEMISTRY METHOD 02/15/2025 10:24 AM [facility] Blood Venous blood specimen / Unknown Venipuncture / Unknown 02/15/2025 8:56 AM EDT 02/15/2025 8:56 AM EDT us Maury Castaneda MD LAB BLOOD ORDERABLES Final Resul t [facility] [address] [place] [address], * Microalbumin creatinine urine ratio (11/28/2024 9:35 AM EDT) Creatinine, Urine 241.0 mg/dL LAB CHEMISTRY METHOD 11/28/2024 3:27 PM EDT [facility] Microalb, Ur 16.3 0.0 - 29.0 mg/L LAB CHEMISTRY METHOD 11/28/2024 3:27 PM EDT [facility] Microalb/Creat Ratio 7 <30 mg/g creat LAB CHEMISTRY METHOD 11/28/2024 3:27 PM EDT [facility] Urine Urine specimen obtained by clean catch procedure / Unknown Non-blood Collection / Unknown 11/28/2024 9:35 AM EDT 11/28/2024 9:35 AM EDT Buzz Quintanilla MD LAB URINE ORDERABLES Final Re sult [facility] [address] [place] [address], * Colonoscopy (09/24/2023) Colonoscopy no interpretation , abstracted Anatomical Region Laterality Modality Other Historical Provider HEALTH MAINTENANCE Final Result from Last 3 Months or Most Recently Relevant to Health Maintenance Additional Health Concerns Infection Onset Date Last Indicated Salmonella 06/21/2024 06/21/2024 Insurance [employer] Member Subscriber Plan / Payer (Ef fective 2020-Present) Name:CYRUS CARR Relation to Subscriber:Self Name:Cyrus Carr Payer ID:[id number] Group ID:[id number] Type:Not on file Address: [place] [facility] [place] [address] Care Teams Linux Developer Relationship Specialty Start Date End Date Maury Castaneda MD [address] [address] PCP - General Internal Medicine 02/08/20
--- OUTSIDE RECORDS SUMMARY | 2025-04-10 18:44 | XMS_ITS | Encounter Summary ---
Author Organization [facility] Address [facility] [employer] [facility] [address] [place] [address] Phone Care Team Providers Care Automobile Service Advisor Name Role Phone Maury Castaneda MD Primary Care Provider [phone] Lesley Ferreira MD Unavailable [phone] Roxi Roper Unavailable [phone] Encounter Details Date Type Department Care Team (Late st Contact Info) Description 10/23/2020 Procedure Pass [facility] Echocardiography [address] [place] [address] Social History Tobacco Use Types Packs/Day Years [...] on filedocumented in this encounter Care Teams Automobile Service Advisor Relationship Specialty Start Date End Date Maury Castaneda MD 175 [facility] [address] [place] [address] PCP - General Internal Medicine 05/23/20 Lesley Ferreira MD [address] [place] [address] [address] [place] [address] [email or web address] Physician Internal Medicine 05/23/20 Roxi Roper, [address] [address] [email or web address] Therapeutic Program Worker Oncology 08/06/20 documented as of this encounter Additional Source Comments The information contained in this document represents components of the legal health record. It is not the complete legal health record.[facility]
--- OUTSIDE RECORDS SUMMARY | 2025-04-10 18:44 | XMS_ITS ---
Author Organization [facility] Address [address] [place] [address] Phone Care Team Providers Care Patient Access Coordinator Name Role Phone Maury Castaneda MD Primary Care Provider [phone] Lesley Ferreira MD Unavailable [phone] Roxi Roper Unavailable [phone] Active Problems Patient Care Coordination No te Formatting of this note migh t be different from the original. 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 Fonseca cultured, NGTD. Urine culture no growth. Asymptomatic other than body aches. Received one dose of Ceftaz however this was not continued since ANC>500. Remained afebrile until 6/7 PM when he spiked to 101.2, HD stable, no localizing s/sx of infection. Not neutropenic so did not start antibiotics. Inflammatory markers peaked on 10/19, therefore most likely grade 1 CRS. Since inflammatory markers have downtrended. -- TTE results pending on time of discharge. 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 In Apr 2020 presented with abdominal mass, biopsy with GCB subtype high grade lymphoma. PET with disease above and below the diaphragm. Completed 3 cycles of salvage with R-GDP with partial disease. Received 1 cycle of bridging Jeramy-BR locally and tolerated well. Admitted now for anti-CD19 CAR T-cells with Breyanzi product TP 1004. Received lymphodepletion with Fludarabine and Cyclophosphamide, and Neulasta 10/12 as an outpatient. On Day 0 = 10/15/20, CAR T cells infused following standard premedications w/o issue. Neuro consult in [facility] on Day 0. Baseline ferritin 395, CRP 6, procal 0.25. Course complicated by #CRS. Will continue ppx acyclovir, bactrim through Apr 2021. Discontinued levaquin ppx on 10/23. Will continue Keppra for seizure ppx through day +30 (11/14). Discontinued allopurinol as no TLS. Baseline TCDs on day 0 and 5 were normal. TTE done on day of discharge d/t CRS. Will follow up with Dr. Ryan on discharge. Primary Oncologist: Daniela Ryan ; Local: [facility] Day 0: 10/15/20 Controlled type 2 diabetes m meme with hyperglycemia, without long-term current use of insulin 06/20/2010 Assessment & Plan (10/24/2020 8:01 AM EDT): SECONDARY Held home glimepiride 2mg BID, replaced with aspart sliding scale. Glucose ranging 150-200s. In anticipation of discharge restarted home Glimepride. Fatty liver 06/20/2010 Current Treatment and Therapy Plans TP 1004 IEC LISOCABTAGENE MARALEUCEL* Plan Start Date:10/15/2020 Plan Provider:Krystal yRan MD Linked Problems Diffuse large B-cell lymphom a of lymph nodes of multiple regions Treatment Medications lisocabtagene maraleucel (BREYANZI) Past Treatment and Therapy Plans TREATMENT PLAN Plan Name Start Date Discontinue Date Treatment Medications Discontinue Reason Plan Provider Cycles TP 1004 IEC DFCI/BWH CYCLOPHO SPHAMIDE /FLUDARA BINE 10/10/2020 10/31/2024 cycloPHOSphamide (CYTOXAN) infusion 100 mL (powder vial)fludarabine (FLUDARA) IVPB {solution vial} a. Therapy Complete Krystal Ryan MD 1 of 1 cycle started Resolved Problems Problem Noted Date Diagnosed Date Resolved Date Cancer associated pain 10/14/202010/15 Assessment & Plan (10/15/2020 12:46 PM EDT): RESOLVED Previously with low back pain/sacral pain associated with disease involvement confirmed on PET/CT. No associated radiculopathy or s/s cauda equina or cord compression. 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
--- OUTSIDE RECORDS SUMMARY | 2025-04-10 18:44 | XMS_ITS | Encounter Summary ---
Author Organization [facility] Address [address] [place] [address] Phone Care Team Providers Care Remote Control Mirror Installer Name Role Phone Maury Castaneda MD Primary Care Provider [phone] Lesley Ferreira MD Unavailable [phone] Roxi Roper Unavailable [phone] Encounter Details Date Type Department Care Team (Late st Contact Info) Description 06/14/2020 Documentation Central Registration, [facility] [place] [address] [place] [address], 2nd [place] [address] Ansley [email or web address] Social History Tobacco Use Types Packs/Day Years [...] on filedocumented in this encounter Care Teams Remote Control Mirror Installer Relationship Specialty Start Date End Date Maury Castaneda MD 175 [facility] [address] [place] [address] PCP - General Internal Medicine 05/23/20 Lesley Ferreira MD [address] [place] [id number] [email or web address] Referring Physician Internal Medicine 05/23/20 Roxi Roper, [address] [address] [email or web address] Broach Operator Oncology 08/06/20 documented as of this encounter Additional Source Comments The information contained in this document represents components of the legal health record. It is not the complete legal health record.[facility]
--- OUTSIDE RECORDS SUMMARY | 2025-04-10 18:44 | XMS_ITS | Clinical Summary ---
Author Organization [facility] Address [address] [address] Phone Care Team Providers Care Bowling Or Skating Front Desk Clerk Name Role Phone Maury Castaneda MD Primary Care Provider [phone] Allergies No known active allergies Medications Dulaglutide (Trulicity) 1.5 MG/0.5ML solution auto-injector INJECT 1.5 IN THE SKIN EVERY 7 DAYS 07/17/2021 Active glimepiride (AMARYL) 2 MG tablet Take 4 mg by mouth in the morning and 4 mg in the evening. 03/25/2021 Active acetaminophen (TYLENOL) 500 MG tablet Take by mouth if needed for mild pain Active Active Problems Problem Noted Date Diagnosed Date Chronic kidney disease, stage 2 (mild) Type 2 diabetes mellitus without complication Immunizations Immunization Administration Dates Next Due Influenza (IM) Preservative Free 06/19/2010,02/15 Influenza, MDCK, PF, Quadrivalent 02/08/2020 Pfizer SARS-COV-2 07/09/2020 Pneumococcal Polysaccharide 06/19/2010 Td 03/30/2005,05/17/1992 Tdap 08/15/2010 Social History Tobacco Use Types Packs/Day Years Used Date Smoking Tobacco: Never Assessed Sex and Gender Information Value Date Recorded Sex Assigned at Not on file Legal Sex Male 7:29 AM EDT Gender Identity Not on file Sexual Orientation Not on file Last Filed Vital Signs Vital Sign Reading Time Taken Comments Blood Pressure 112/60 11/27/2024 3:44 PM EDT Pulse 77 11/27/2024 3:44 PM EDT Temperature - - Respiratory Rate - - Oxygen Saturation 99% 11/27/2024 3:44 PM EDT Inhaled Oxygen Concentration - - Weight 96.2 kg (212 lb) 11/27/2024 3:44 PM EDT Height - - Body Mass Index - - Plan of Treatment Upcoming Encounters Date Type Department Care Team (Late st Contact Info) Description 05/29/2025 1:30 PM EST Office Visit [facility] [address] [address] Buzz Quintanilla MD [address] [address] Health Maintenance Due Date Last Done Comments Pneumococcal Vaccine: 50+ Years (2 of 2 - PCV) 06/19/2011 06/19/2010 Colorectal Cancer Screening: Annual FOBT 12/08/2011 Colorectal Cancer Screening: Colonoscopy 12/08/2011 Colorectal Cancer Screening: Sigmoidoscopy 12/08/2011 Diabetes: Hemoglobin A1C 10/05/2024 06/27/2021 Diabetes: Ophthalmology Exam 10/05/2024 06/26/2010 Diabetes: Pedal Pulse Checked 10/05/2024 Diabetes: Sensory Foot Exam 10/05/2024 Diabetes: Visual Foot Exam 10/05/2024 Influenza Vaccine (#1) 2025 0, 06/19/2010, 03/06/2008 Hepatitis B Vaccine Aged Out No longe r eligible based on patient's age to complete this topic Insurance [facility] ([id number]) YOSSI HANNA [id number] Care Teams Bowling Or Skating Front Desk Clerk Relationship Specialty Start Date End Date Maury Castaneda MD [address] [address] PCP - General Internal Medicine 10/04/24
--- OUTSIDE RECORDS SUMMARY | 2025-04-10 18:44 | XMS_ITS | Encounter Summary ---
Author Organization [facility] Address Critical access hospital [employer] [facility] [address] [place] [address] Phone Care Team Providers Care Business Continuity Specialist Name Role Phone Maury Castaneda MD Primary Care Provider [phone] Lesley Ferreira MD Unavailable [phone] Roxi Roper Unavailable [phone] Reason for Visit * Reason Onset Date Comments port documentation 08/08/2020 Encounter Details Date Type Department Care Team (Late st Contact Info) Description 08/08/2020 Documentation Laboratory Services, [facility] [place] [address] [place] [address], 2nd [place] [address] Deena Enriquez, RN [address] [place] [address] [email or web address] port documentation Social History Tobacco Use Types Packs/Day Years [...] on filedocumented in this encounter Care Teams Business Continuity Specialist Relationship Specialty Start Date End Date Maury Castaneda MD [address] [address] PCP - General Internal Medicine 05/23/20 Lesley Ferreira MD [address] [address] [email or web address] Referring Physician Internal Medicine 05/23/20 Roxi Roper, [address] [address] [email or web address] Glass Worker Oncology 08/06/20 documented as of this encounter Additional Source Comments The information contained in this document represents components of the legal health record. It is not the complete legal health record.[facility]
--- OUTSIDE RECORDS SUMMARY | 2025-04-10 18:44 | XMS_ITS | Encounter Summary ---
Author Organization [facility] Address [facility] NOT[address] [address] Phone Care Team Providers Care Computer Customer Support Specialist Name Role Phone Maury Castaneda MD Primary Care Provider [phone] Lesley Ferreira MD Unavailable [phone] Roxi Rpoer Unavailable Reason for Visit * Reason Comments Medication Refill Encounter Details Date Type Department Care Team (Late st Contact Info) Description 05/16/2021 Refill [facility], [facility] [place] [address] [place] [address], 10[address] [place] [address] Snehal Sanchez MD, PhD [address] [place] [address] [email or web address] Medication Refill Social History Tobacco Use Types Packs/Day Years [...] documented as of this encounter Visit Diagnoses Diagnosis High grade B-cell lymphoma documented in this encounter Care Teams Computer Customer Support Specialist Relationship Specialty Start Date End Date Maury Castaneda MD 175 [facility] [address] [place] [address] PCP - General Internal Medicine 05/23/20 Lesley Ferreira MD 175 [facility] [address] [place] [address] [email or web address] Referring Physician Internal Medicine 05/23/20 Roxi Roper, [address] [address] [email or web address] Real Time Operator Oncology 08/06/20 documented as of this encounter Additional Source Comments The information contained in this document represents components of the legal health record. It is not the complete legal health record.[facility]
--- OUTSIDE RECORDS SUMMARY | 2025-04-10 18:44 | XMS_ITS | Encounter Summary ---
Author Organization [facility] Address [facility] [employer] [facility] [address] [place] [address] Phone Care Team Providers Care Washcloth Folder Name Role Phone Maury Castaneda MD Primary Care Provider [phone] Lesley Ferreira MD Unavailable [phone] Roxi Roper Unavailable [phone] Encounter Details Date Type Department Care Team (Late st Contact Info) Description 09/10/2020 Procedure Pass [facility] Angio Interventional Radiology [address] [place] [address] Social History Tobacco Use Types Packs/Day Years [...] on filedocumented in this encounter Care Teams Washcloth Folder Relationship Specialty Start Date End Date Maury Castaneda MD [address] [address] PCP - General Internal Medicine 05/23/20 Lesley Ferreira MD [address] [address] Referring Physician Internal Medicine 05/23/20 Roxi Roper, [address] [address] [email or web address] Nurse Companion Oncology 08/06/20 documented as of this encounter Additional Source Comments The information contained in this document represents components of the legal health record. It is not the complete legal health record.[facility]
--- OUTSIDE RECORDS SUMMARY | 2025-04-10 18:44 | XMS_ITS | Clinical Summary ---
Author Organization [facility] Address [address] [place] [address] Care Team Providers Care Machine Sander Name Role Phone Maury Castaneda MD Primary Care Provider Unavailab le Allergies No known active allergies Medications Medication Sig Dispensed Refills Start Date End Date Status acetaminophen (TYLENOL EXTRA STRENGTH) 500 MG tablet Take by mouth every 6 (six) hours as needed. 0 Active dulaglutide (Trulicity) 1.5 MG/0.5ML subcutaneous pen-injector Inject under the skin once a week. 0 Active glimepiride (AMARYL) tablet 2 mg TAKE 2 TABLETS BY MOUTH TWICE A DAY 90 tablet 0 02/03/2022 Active Active Problems No known active problems Social History Tobacco Use Types Packs/Day Years Used Date Smoking Tobacco: Never Smokeless Tobacco: Never Tobacco Cessation:Counseling Given: Not Answered Alcohol Use Standard Drinks/Week Comments No 0 (1 standard drink = 0.6 oz pur e alcohol) Sex and Gender Information Value Date Recorded Sex Assigned at Not on file Gender Identity Not on file Sexual Orientation Not on file Job Start Date Occupation Industry Not on file Not on file Not on file Last Filed Vital Signs Vital Sign Reading Time Taken Comments Blood Pressure 135/85 01/24/2024 9:50 AM EDT Pulse 66 01/24/2024 9:50 AM EDT Temperature 36.3 C (97.3 F) 01/24/2024 9:50 AM EDT Respiratory Rate - - Oxygen Saturation 100% 01/24/2024 9:50 AM EDT Inhaled Oxygen Concentration - - Weight 103.4 kg (228 lb) 01/24/2024 9:50 AM EDT Height 177.8 cm (5' 10 ) 01/21/2023 8:50 AM EDT Body Mass Index 32.71 01/21/2023 8:50 AM EDT Plan of Treatment Health Maintenance Due Date Last Done Comments Hepatitis C Screening 1962 Depression Screening 1974 BMI Counseling 1980 Preventative Health Evaluation 1980 Colon Cancer Screening (Colonoscopy) 12/08/2007 Pneumococcal Vaccine (2 of 2 - PCV) 06/19/2011 06/19/2010 Shingrix-Zoster Vaccine (1 o f 2) 2012 DTap / Tdap / Td (2 - Td or Tdap) 08/15/2020 08/15/2010 COVID-19 Vaccine (2 - 2024-2 6 season) 2025 07/09/2020 Influenza Vaccine (#1) 2025 , 06/19/2010, 03/06/2008 RSV Adult > 60+ Yrs or (1 - 1-dose 75+ series) 2037 Hepatitis B Vaccines Aged Out No long er eligible based on patient's age to complete this topic RSV Ped < 20 months Aged Out No longe r eligible based on patient's age to complete this topic Care Teams Machine Sander Relationship Specialty Start Date End Date Maury Castaneda MD PCP - General Internal Medicine 09/09/18
--- OUTSIDE RECORDS SUMMARY | 2025-04-10 18:44 | XMS_ITS | Clinical Summary ---
Author Organization [facility] Address [address] [facility] [address] [place] [address] Phone Care Team Providers Care School Cafeteria Cook Head Name Role Phone Maury Castaneda MD Primary Care Provider [phone] Lesley Ferreira MD Unavailable [phone] Roxi Roper Unavailable [phone] Allergies No known active allergies Medications glimepiride (AMARYL) 2 MG tablet Take 2 tablets by mouth 2 (two) times a day. 1 Active dulaglutide (TRULICITY) 1.5 mg/0.5 mL subcutaneous injection Inject under the skin. 2 Active Active Problems Patient Care Coordination No te [...] not continued since ANC>500. Remained afebrile until 10/21 PM when he spiked to 101.2, HD [...] Admitted now for anti-CD19 CAR T-cells with [employer] product TP 1004. Received lymphodepletion with Fludarabine and Cyclophosphamide, and Neulasta 10/12 as an outpatient. On Day 0 = 10/15/20, CAR T cells infused following standard premedications w/o issue. Neuro consult in [facility] on Day 0. Baseline ferritin 395, [...] discharge. Primary Oncologist: Daniela Ryan ; Local: [facility] Day 0: 10/15/20 Controlled type 2 diabetes m meme with hyperglycemia, without long-term current use of insulin 06/20/2010 Assessment & Plan (10/24/2020 8:01 AM EDT): SECONDARY Held home glimepiride 2mg BID, replaced with aspart sliding scale. Glucose ranging 150-200s. In anticipation of discharge restarted home Glimepride. Fatty liver 06/20/2010 Resolved Problems Problem Noted Date Diagnosed Date Resolved Date Cancer associated pain 10/14/202010/15 Assessment & Plan (10/15/2020 12:46 PM EDT): RESOLVED Previously with low back pain/sacral pain associated with disease involvement confirmed on PET/CT. No associated radiculopathy or s/s cauda equina or cord compression. 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 Immunizations Immunization Administration Dates Next Due COVID-19 (Pre-03/08) Pfizer Vaccine, mRNA, PF INFLUENZA, SPLIT VIRUS, TRIVALENT W/ PRESERVATIV E IM 06/19/2010,03/06/2008 Influenza Quadrivalent MDCK Preservative Free IM 02/08/2020 Pneumococcal polysaccharide PPSV23 06/19/2010 Td (adult),2 Lf Tetanus Toxoid, PF, Adsorbed ,05/17/1992 Tdap 08/15/2010 Family History Medical History Relation Comments Lung cancer Father Diabetes Mother Kidney failure Mother Relation Status Comments Father Mother Social History Tobacco Use Types Packs/Day Years Used Date Smoking Tobacco: Never Smokeless Tobacco: Never Alcohol Use Standard Drinks/Week Comments Not Currently 0 (1 standard drink = 0.6 oz pur e alcohol) Education Answer Date Recorded Are you interested in more education? Not on elaina e 09/11/2022 Are you concerned about learning? Not on file 09/11/2022 No 09/11/2022 No 09/11/2022 Digital Access Answer Date Recorded No 10/13/2022 No 10/13/2022 Reliable internet access at home? Not on file 10/13/2022 Device with a working camera? Not on file Sex and Gender Information Value Date Recorded Sex Assigned at Male 10/14/2020 4:54 PM EDT Legal Sex Male 10:07 AM EST Gender Identity Male 10/14/2020 4:54 PM EDT Sexual Orientation Straight 10/14/2020 4: 54 PM EDT Last Filed Vital Signs Vital Sign Reading Time Taken Comments Blood Pressure 139/79 12/08/2024 8:38 AM EDT Pulse 70 12/08/2024 8:38 AM EDT Temperature 36.5 C (97.7 F) 12/08/2024 8:38 AM EDT Respiratory Rate 16 12/08/2024 8:38 AM EDT Oxygen Saturation 99% 12/08/2024 8:38 AM EDT Inhaled Oxygen Concentration 38.7% 10/09/2020 1 :55 PM EDT Weight 94.8 kg (208 lb 15.9 oz) 12/08/2024 8:38 AM EDT Height 181.5 cm (5' 11.46 ) 12/08/2024 8:38 AM E DT Body Mass Index 28.78 12/08/2024 8:38 AM EDT Plan of Treatment Health Maintenance Due Date Last Done Comments DEPRESSION SCREENING 1974 HEPATITIS C SCREENING 1980 HIV ONE-TIME SCREENING (18-65 YEARS) 1980 ZOSTER VACCINES (1 of 2) 1981 COLOGUARD 12/08/2007 COLONOSCOPY 12/08/2007 COLORECTAL CANCER SCREENING 12/08/2007 FIT TEST 12/08/2007 FOBT 12/08/2007 SIGMOIDOSCOPY 12/08/2007 VIRTUAL COLONOSCOPY 12/08/2007 PNEUMOCOCCAL VACCINES (50+ years) (2 of 2 - PCV) 06/19/2011 06/19/2010 RSV VACCINE (1 - Risk 50-74 years 1-dose series) 2012 DIABETIC EYE EXAM 06/01/2020 06/26/2010 Adult Td,Tdap Booster 08/15/2020 08/15/2010 , 03/30/2005, 05/17/1992 HEMOGLOBIN A1C 12/25/2021 06/27/2021 LIPID PANEL 06/27/2022 06/27/2021 INFLUENZA VACCINE (#1) 2024 , 06/19/2010, 03/06/2008 COVID-19 VACCINE ( season) 2025 03/27/2022, 04/09/2021, 08/08/2020, Additional history exists BLOOD PRESSURE 06/10/2025 12/08/2024 URINE MICROALBUMIN/CREATININE RATIO 11/28/2025 11/28/2024 SMOKING STATUS SCREENING (Once After 26 Yrs) Completed 10/14/2020 HEPATITIS A VACCINES Aged Out No long er eligible based on patient's age to complete this topic HIB VACCINES Aged Out No longer eligi ble based on patient's age to complete this topic MENINGOCOCCAL VACCINES (ACWY) Aged Out No longer eligible based on patient's age to complete this topic MENINGOCOCCAL VACCINES (B) Aged Out N o longer eligible based on patient's age to complete this topic Medical Devices Not on file Insurance MEDICARE REPLACEMENT YOSSI HANNA [id number] [place] [address] [place] [address] MEDICARE REPLACEMENT MEDICARE REPLACEMENT MEDICARE REPLACEMENT [facility] ONE CARE MEDICARE [place] [address] [place] [address] MEDICARE REPLACEMENT [facility] MEDICARE REPLACEMENT ONE CARE MEDICARE REPLACEMENT [employer] [place] [place] [address] CARE MEDICARE REPLACEMENT [facility] ONE CARE MEDICARE REPLACEMENT YOSSI HANNA [id number] Advance Directives For more information, please contact: [phone] (9AM - 5PM [facility], Wednesday-Wednesday) Documents on File Type Date Recorded Patient Project Management Engineer Expl anation Healthcare Proxy 09/11/2020 4:48 PM * Full Code (Latest Code Status on File) Date Activated Date Inactivated Comments 10/14/2020 5:27 PM Question Answer Comments Code Status Confirmed With: PatientFamily Code Status Communicated To: Inpatient Attending Care Teams School Cafeteria Cook Head Relationship Specialty Start Date End Date Maury Castaneda MD [address] [place] [address] PCP - General Internal Medicine 05/23/20 Lesley Ferreira MD [address] [place] [address] [email or web address] Referring Physician Internal Medicine 05/23/20 Roxi Roper, [address] [address] [email or web address] Certified Medication Technician Oncology 08/06/20 Additional Source Comments The information contained in this document represents components of the legal health record. It is not the complete legal health record.[facility]
--- OUTSIDE RECORDS SUMMARY | 2025-04-10 18:44 | XMS_ITS | Encounter Summary ---
Author Organization [facility] Address [facility] [employer] [facility] [address] [place] [address] Phone Care Team Providers Care Car Tracer Name Role Phone Maury Castaneda MD Primary Care Provider [phone] Lesley Ferreira MD Unavailable [phone] Roxi Roper Unavailable [phone] Encounter Details Date Type Department Care Team (Late st Contact Info) Description 07/04/2020 Procedure Pass [facility] Echocardiography [address] [place] [address] Social History Tobacco Use Types Packs/Day Years [...] on filedocumented in this encounter Care Teams Car Tracer Relationship Specialty Start Date End Date Maury Castaneda MD [address] [address] PCP - General Internal Medicine 05/23/20 Lesley Ferreira MD [address] [address] [email or web address] Physician Internal Medicine 05/23/20 Roxi Roper, FRAME PULLEY MORTISING MACHINE OPERATOR[address] [address] [email or web address] Call Worker Oncology 08/06/20 documented as of this encounter Additional Source Comments The information contained in this document represents components of the legal health record. It is not the complete legal health record.[facility]
== END 2025-04-10 15:39 | disposition home or self-care (01) ==
LOC: HO.HKAS 15:02
PROVIDERS: PCP Internal Medicine; Visit Provider Internal Medicine Nephrology
DX: N18.31 Chronic kidney disease, stage 3a (principal); N28.1 Cyst of kidney, acquired
CPT/HCPCS: 99214

== ENCOUNTER → 2025-04-10 15:01 | Outpatient (BNVA) | payer OTHER, SELFPAY | PROVIDERS: PCP Internal Medicine; Visit Provider Internal Medicine Nephrology | DX: E11.22 Type 2 diabetes mellitus with diabetic chronic kidney disease (principal); N18.31 Chronic kidney disease, stage 3a; N28.1 Cyst of kidney, acquired; Z79.85 Long-term (current) use of injectable non-insulin antidiabetic drugs; Z79.84 Long term (current) use of oral hypoglycemic drugs; Z85.72 Personal history of non-Hodgkin lymphomas | CPT/HCPCS: 99212 ==